=== PATIENT | male | born 1965 | race African-American/Black ===

== ENCOUNTER 2020-05-04 07:09 | Observation (INO) ==
[2020-05-04] MEDS ORDERED: FUROSEMIDE 40 MG/4 ML VIAL IV STA (07:46)
[2020-05-04] MEDS ORDERED: NITROGLYCERIN 2% OINT 1 INCH/GM PACK TOP STA (07:46)
[2020-05-04 08:02] LABS: Basophils # 0.1 10*3/uL (0.0-0.2); Basophils % 1.2 % (0.0-0.8); Eosinophils # 0.2 10*3/uL (0.0-0.87); Eosinophils % 2.5 % (0.00-10.9); Hematocrit 43.1 VOL% (42.0-52.0); Hemoglobin 14.3 GM/DL (14.0-18.0); Immature Granulocytes % 0.3 %; Immature Granulocytes Absolute 0.02 #; Lymphocytes % 29.6 % (21.2-54.2); Mean Corpuscular HGB Conc 33.2 GM/DL (32-36); Mean Corpuscular Volume 92.5 FL (87-102); Monocytes % 10.8 % (1.7-12.7); Neutrophils % 55.6 % (38.7-73.9); Platelet Count 200 T/CUMM (130-400); Red Blood Count 4.66 MC/CUMM (3.8-5.5); Red Cell Distribution Width 16.1 % (9.3-17.3); White Blood Count 6.8 T/CUMM (4-12)
[2020-05-04 08:40] LABS: Albumin 3.1 G/DL (3.4-5.0); Bilirubin,Total 0.9 MG/DL (0.2-1.0); Calcium 8.5 MG/DL (8.5-10.1); Osmolality,Calculated 281.3 MOS/KG (273-304); Potassium 4.1 MMOL/L (3.5-5.1); Total Protein 7.1 G/DL (6.4-8.3)
[2020-05-04] MEDS ORDERED: DEXTROSE 50% 25 GM/50 ML VIAL IV PRN (10:55)
[2020-05-04] MEDS ORDERED: GLUCAGON 1 MG VIAL IM PRN (10:55)
[2020-05-04] MEDS ORDERED: ACETAMINOPHEN 325 MG TABLET PO PRN (10:55)
[2020-05-04] MEDS ORDERED: ONDANSETRON 4 MG/2 ML VIAL IV PRN (10:55)
[2020-05-04 10:59] LABS: Ferritin 33.4 ng/ml (26-388)
[2020-05-04] MEDS: ENOXAPARIN 40 MG/0.4 ML SYRINGE SUBCUT SCH (11:14)
[2020-05-04] MEDS ORDERED: NICOTINE 21 MG/24 HR PATCH TRANSDERM PRN (11:24)
[2020-05-04] MEDS ORDERED: NITROGLYCERIN SL 0.4 MG TABLET SL PRN (11:28)
[2020-05-04 12:02] LABS: Risk Ratio 2.72; Thyroid Stimulating Hormone 2.67 uIU/ml (0.358-3.74); VLDL CHOLESTEROL 13.4 MG/DL
[2020-05-04 12:53] LABS: PT Patient Result 11.1 SECS (9.8-11.9); Partial Thromboplastin Time 28.6 SECS (23.9-33.8)
[2020-05-04] MEDS ORDERED: LORazepam 2 MG/1 ML VIAL IV PRN (13:13)
[2020-05-04] MEDS: INSULIN LISPRO 100 UNIT/ML SUBCUT SCH ×3 (13:51→20:26)
[2020-05-04] MEDS: THIAMINE 100 MG TABLET PO SCH (14:02)
[2020-05-04] MEDS: METOPROLOL TARTRATE 25 MG TABLET PO SCH (20:25)
[2020-05-04] MEDS ORDERED: FOLIC ACID 1 MG TABLET PO SCH (21:00)
[2020-05-05 06:16] LABS: Basophils # 0.1 10*3/uL (0.0-0.2); Basophils % 0.8 % (0.0-0.8); Eosinophils # 0.2 10*3/uL (0.0-0.87); Eosinophils % 2.7 % (0.00-10.9); Hemoglobin 13.2 GM/DL (14.0-18.0); Immature Granulocytes % 0.2 %; Immature Granulocytes Absolute 0.01 #; Lymphocytes # 2.3 10*3/uL (1.4-4.0); Lymphocytes % 38.9 % (21.2-54.2); Mean Corpuscular HGB Conc 33.8 GM/DL (32-36); Mean Corpuscular Volume 91.8 FL (87-102); Mean Platelet Volume 11.6 FL (9.6-12.0); Monocytes % 9.1 % (1.7-12.7); Neutrophils % 48.3 % (38.7-73.9); Platelet Count 179 T/CUMM (130-400); Red Blood Count 4.25 MC/CUMM (3.8-5.5); Red Cell Distribution Width 15.7 % (9.3-17.3); White Blood Count 5.9 T/CUMM (4-12)
[2020-05-05 06:36] LABS: Calcium 8.4 MG/DL (8.5-10.1); Osmolality,Calculated 282.4 MOS/KG (273-304); Potassium 3.4 MMOL/L (3.5-5.1)
[2020-05-05] MEDS: INSULIN LISPRO 100 UNIT/ML SUBCUT SCH ×2 (08:20→11:33)
[2020-05-05] MEDS ORDERED: FUROSEMIDE 40 MG/4 ML VIAL IV SCH (09:00)
[2020-05-05] MEDS ORDERED: LOSARTAN 25 MG TABLET PO SCH (09:00)
[2020-05-05] MEDS ORDERED: MULTIVITAMIN (CENTRUM) TABLET PO SCH (09:00)
[2020-05-05] MEDS ORDERED: PANTOPRAZOLE 40 MG TABLET PO SCH (09:00)
[2020-05-05] MEDS: THIAMINE 100 MG TABLET PO SCH (09:03)
[2020-05-05] MEDS: METOPROLOL TARTRATE 25 MG TABLET PO SCH (09:03)
[2020-05-05] MEDS ORDERED: cefTRIAXone 1,000 MG in SYRINGE 1 EACH IV ONE (10:30)
[2020-05-05] MEDS ORDERED: AZITHROMYCIN INJ 500 MG in SODIUM CHLORIDE 0.9% 250 ML IV ONE (10:30)
[2020-05-05] MEDS: ENOXAPARIN 40 MG/0.4 ML SYRINGE SUBCUT SCH (10:55)
[2020-05-05] MEDS ORDERED: POTASSIUM CHLORIDE 20 MEQ TABLET PO ONE (11:00)
[2020-05-05 12:08] VITALS: BP 124/68
== END 2020-05-05 13:09 | disposition home or self-care (01) ==
LOC: EDUNIT# → EDBD → N.ED 07:09 → N.EDINP 07:09 → N.TELES 10:12
PROVIDERS: ADMIT Internal Medicine; ATTEND Internal Medicine

== ENCOUNTER 2020-10-02 08:55 | Inpatient (IN) ==
[2020-10-02] MEDS ORDERED: GLUCAGON 1 MG VIAL IM PRN (11:18)
[2020-10-02] MEDS ORDERED: DEXTROSE 50% 25 GM/50 ML VIAL IV PRN (11:18)
[2020-10-02] MEDS ORDERED: CLORAZEPATE 3.75 MG TABLET PO PRN (11:28)
[2020-10-02] MEDS ORDERED: NICOTINE 21 MG/24 HR PATCH TRANSDERM PRN (11:29)
[2020-10-03 10:41] LABS: Basophils # 0.1 10*3/uL (0.0-0.2); Basophils % 0.9 % (0.0-0.8); Eosinophils # 0.2 10*3/uL (0.0-0.87); Eosinophils % 2.8 % (0.00-10.9); Hematocrit 45.3 VOL% (42.0-52.0); Hemoglobin 15.1 GM/DL (14.0-18.0); Immature Granulocytes % 0.4 %; Immature Granulocytes Absolute 0.02 #; Lymphocytes # 1.7 10*3/uL (1.4-4.0); Lymphocytes % 29.6 % (21.2-54.2); Mean Corpuscular HGB Conc 33.3 GM/DL (32-36); Mean Corpuscular Volume 92.8 FL (87-102); Mean Platelet Volume 10.5 FL (9.6-12.0); Monocytes % 8.5 % (1.7-12.7); Neutrophils % 57.8 % (38.7-73.9); Platelet Count 157 T/CUMM (130-400); Red Blood Count 4.88 MC/CUMM (3.8-5.5); Red Cell Distribution Width 16.4 % (9.3-17.3); White Blood Count 5.7 T/CUMM (4-12)
[2020-10-03] MEDS ORDERED: PNEUMOCOCCAL VACCINE (23 VALENT) 0.5 ML VIAL IM ONE (10:54)
[2020-10-03 11:00] LABS: Eosinophils 2 % (0-10); Lymphocytes 32 % (20-55); Platelet Estimate Adequate; Segmented Neutrophils 62 % (50-85); Total Cells Counted 100
[2020-10-03] MEDS: INSULIN REGULAR 100 UNIT/ML SUBCUT SCH ×4 (11:00→22:34)
[2020-10-03] MEDS: FOLIC ACID 1 MG TABLET PO SCH (11:01)
[2020-10-03] MEDS: MULTIVITAMIN (CENTRUM) TABLET PO SCH (11:01)
[2020-10-03] MEDS: THIAMINE 100 MG TABLET PO SCH (11:02)
[2020-10-03] MEDS ORDERED: NITROGLYCERIN SL 0.4 MG TABLET SL PRN (11:03)
[2020-10-03] MEDS: CHLORHEXIDINE 0.12% ORAL RINSE 60 ML BOTTLE SWISH/SPIT SCH ×2 (11:04→22:33)
[2020-10-03] MEDS ORDERED: MORPHINE 2 MG/1 ML SYRINGE IV PRN (11:04)
[2020-10-03 11:05] LABS: Albumin 3.1 G/DL (3.4-5.0); Bilirubin,Total 0.6 MG/DL (0.20-1.00); Osmolality,Calculated 279.7 MOS/KG (273-304); Potassium 3.7 MMOL/L (3.5-5.1); Total Protein 6.8 G/DL (6.4-8.2)
[2020-10-03] MEDS ORDERED: SODIUM CHLORIDE 0.9% 1,000 ML IV SCH (11:30)
[2020-10-03] MEDS ORDERED: POTASSIUM CHLORIDE 20 MEQ TABLET PO ONE (11:34)
[2020-10-03] MEDS: NICOTINE 21 MG/24 HR PATCH TRANSDERM SCH (11:53)
[2020-10-03] MEDS: CHLORHEXIDINE 4% SOLN 118 ML BOTTLE TOP SCH ×3 (14:00→22:25)
[2020-10-03 14:36] LABS: ABG Base Excess 1.1 MMOL/L (-2.5-2.5); ABG HCO3 25.4 MMOL/L (20-26); ABG Oxygen Saturation 97.5 % (95-100); ABG PCO2 37.1 MM HG (35-48); ABG PH 7.436 (7.35-7.45); ABG PO2 88.4 MM HG (80-95); ABG TCO2 20.8 MMOL/L (23-27)
[2020-10-03] MEDS: METOPROLOL TARTRATE 25 MG TABLET PO SCH (22:33)
[2020-10-04] MEDS ORDERED: PAPAVERINE 60 MG/2 ML VIAL ONE (04:23)
[2020-10-04] MEDS ORDERED: VANCOMYCIN 500 MG VIAL ONE (04:24)
[2020-10-04] MEDS ORDERED: VANCOMYCIN 1,000 MG VIAL ONE (04:24)
[2020-10-04] MEDS ORDERED: CEFUROXIME INJ 1,500 MG in SODIUM CHLORIDE 0.9% 100 ML IV ONE (05:00)
[2020-10-04] MEDS ORDERED: DIAZEPAM 5 MG TABLET PO ONE (05:28)
[2020-10-04] MEDS ORDERED: FAMOTIDINE 20 MG/2 ML VIAL IV ONE (05:28)
[2020-10-04] MEDS ORDERED: SUFentanil 250 MCG/5 ML AMP ONE ×2 (06:06)
[2020-10-04] MEDS ORDERED: MIDAZOLAM 10 MG/2 ML VIAL ONE ×4 (06:06→09:42)
[2020-10-04 07:48] LABS: ABG Base Excess -1.1 MMOL/L (-2.5-2.5); ABG HCO3 23.5 MMOL/L (20-26); ABG Oxygen Saturation 99.4 % (95-100); ABG PCO2 37.3 MM HG (35-48); ABG PH 7.402 (7.35-7.45); ABG TCO2 19.8 MMOL/L (23-27); Glucose Heart Surgery 186 MG/DL (74-106); Hematocrit Heart Surgery 45.5 PERCENT (42-52); Hemoglobin Heart Surgery 14.8 G/DL (14.0-18.0); Ionized Calcium Arterial 1.24 MMOL/L (1.21-1.46); PCO2 Patient Temp Arterial 37.3 MMHG; PH Patient Temp Arterial 7.402; Patient Temperature 37 CELCIUS; Potassium Heart/CVR 3.9 MMOL/L (3.5-5.1); Sodium Heart/CVR 141 MMOL/L (135-145)
[2020-10-04 09:09] LABS: Hematocrit Heart Surgery 33.5 PERCENT (42-52); Hemoglobin Heart Surgery 10.8 G/DL (14.0-18.0); PCO2 Patient Temp Venous 33.5 MM HG; PH Patient Temp Venous 7.452; PO2 Patient Temp Venous 42.3 MM HG; Potassium Heart/CVR 4.7 MMOL/L (3.5-5.1); VBG Base Excess -0.1 MEQ/L (0-4); VBG HCO3 24.1 MEQ/L (24-28); VBG Oxygen Saturation 84.4 %; VBG PCO2 36.9 MMHG (41-51); VBG PH 7.423; VBG PO2 48.6 MMHG (17-40); VBG Total CO2 21.7 MMOL/L
[2020-10-04] MEDS ORDERED: POTASSIUM CHLORIDE RIDER 20 MEQ/100 ML PREMIX IV ONE (09:39)
[2020-10-04] MEDS ORDERED: PHENYLEPHRINE DRIP 40 MG/250 ML PREMIX IV ONE (09:40)
[2020-10-04] MEDS ORDERED: ALBUMIN 5% 12.5 GM/250 ML VIAL IV ONE (09:40)
[2020-10-04 09:45] LABS: Hemoglobin Heart Surgery 12.6 G/DL (14.0-18.0); PCO2 Patient Temp Venous 27.5 MM HG; PH Patient Temp Venous 7.52; Potassium Heart/CVR 4.5 MMOL/L (3.5-5.1); VBG Base Excess -0.3 MEQ/L (0-4); VBG HCO3 22.5 MEQ/L (24-28); VBG Oxygen Saturation 87.8 %; VBG PCO2 31.4 MMHG (41-51); VBG PH 7.474; VBG PO2 51.8 MMHG (17-40); VBG Total CO2 23.5 MMOL/L
[2020-10-04 10:15] LABS: Hematocrit Heart Surgery 38.1 PERCENT (42-52); Hemoglobin Heart Surgery 12.4 G/DL (14.0-18.0); PCO2 Patient Temp Venous 33.9 MM HG; PH Patient Temp Venous 7.447; PO2 Patient Temp Venous 42.8 MM HG; Potassium Heart/CVR 4.8 MMOL/L (3.5-5.1); VBG Oxygen Saturation 79.5 %; VBG PCO2 33.9 MMHG (41-51); VBG PH 7.447; VBG PO2 42.8 MMHG (17-40); VBG Total CO2 20.7 MMOL/L
[2020-10-04] MEDS: FOLIC ACID 1 MG TABLET PO SCH (10:17)
[2020-10-04] MEDS: NICOTINE 21 MG/24 HR PATCH TRANSDERM SCH (10:17)
[2020-10-04] MEDS: INSULIN REGULAR 100 UNIT/ML SUBCUT SCH (10:17)
[2020-10-04] MEDS: METOPROLOL TARTRATE 25 MG TABLET PO SCH (10:17)
[2020-10-04] MEDS: MULTIVITAMIN (CENTRUM) TABLET PO SCH (10:17)
[2020-10-04] MEDS: CHLORHEXIDINE 0.12% ORAL RINSE 60 ML BOTTLE SWISH/SPIT SCH (10:18)
[2020-10-04] MEDS: THIAMINE 100 MG TABLET PO SCH (10:18)
[2020-10-04] MEDS ORDERED: ALBUMIN 25% 25 GM/100 ML VIAL IV ONE (10:37)
[2020-10-04] MEDS ORDERED: MAGNESIUM SULFATE 5 GM/10 ML VIAL IV ONE (10:38)
[2020-10-04] MEDS ORDERED: HEPARIN 10,000 UNIT/10 ML VIAL ONE (10:38)
[2020-10-04] MEDS ORDERED: LIDOCAINE 2% 5 ML VIAL ONE ×2 (10:38→10:52)
[2020-10-04] MEDS ORDERED: MANNITOL 100 GM/500 ML BAG IV ONE (10:38)
[2020-10-04] MEDS ORDERED: PROTAMINE SULFATE 250 MG/25 ML VIAL IV ONE (10:38)
[2020-10-04] MEDS ORDERED: methylPREDNISolone SOD SUC 1,000 MG/8 ML VIAL ONE (10:38)
[2020-10-04] MEDS ORDERED: FUROSEMIDE 20 MG/2 ML VIAL ONE (10:38)
[2020-10-04] MEDS ORDERED: DEXTROSE 5% KCL 20 MEQ 20 MEQ/1,000 ML BAG IV ONE (10:38)
[2020-10-04 10:39] LABS: ABG Base Excess -1.7 MMOL/L (-2.5-2.5); ABG Oxygen Saturation 99.9 % (95-100); ABG PCO2 35.1 MM HG (35-48); ABG PH 7.411 (7.35-7.45); ABG TCO2 19.6 MMOL/L (23-27); Glucose Heart Surgery 277 MG/DL (74-106); Hematocrit Heart Surgery 38.3 PERCENT (42-52); Hemoglobin Heart Surgery 12.5 G/DL (14.0-18.0); Ionized Calcium Arterial 1.25 MMOL/L (1.21-1.46); PCO2 Patient Temp Arterial 35.1 MMHG; PH Patient Temp Arterial 7.411; Patient Temperature 37 CELCIUS; Potassium Heart/CVR 4.1 MMOL/L (3.5-5.1); Sodium Heart/CVR 137 MMOL/L (135-145)
[2020-10-04] MEDS ORDERED: PROTAMINE SULFATE 50 MG/5 ML VIAL IV ONE (10:39)
[2020-10-04] MEDS ORDERED: SODIUM BICARBONATE 50 MEQ/50 ML VIAL IV ONE (10:39)
[2020-10-04] MEDS ORDERED: AMINOCAPROIC ACID 5,000 MG/20 ML VIAL ONE ×5 (10:48→10:53)
[2020-10-04] MEDS ORDERED: ETOMIDATE 40 MG/20 ML VIAL IV ONE (10:52)
[2020-10-04] MEDS ORDERED: CALCIUM CHLORIDE 1,000 MG/10 ML VIAL IV ONE (10:52)
[2020-10-04] MEDS ORDERED: VECURONIUM 10 MG VIAL IV ONE (10:52)
[2020-10-04] MEDS ORDERED: LACTATED RINGERS 1,000 ML IV ONE (10:53)
[2020-10-04] MEDS ORDERED: SODIUM CHLORIDE 0.9% 250 ML IV ONE (10:53)
[2020-10-04] MEDS ORDERED: SODIUM CHLORIDE 0.9% 100 ML IV ONE (10:53)
[2020-10-04] MEDS ORDERED: SODIUM CHLORIDE 0.9% 1,000 ML IV ONE (10:53)
[2020-10-04] MEDS ORDERED: NITROGLYCERIN DRIP 50 MG/250 ML BOTTLE IV ONE (10:54)
[2020-10-04] MEDS ORDERED: PHENYLEPHRINE DRIP 20 MG/250 ML PREMIX IV ONE (10:54)
[2020-10-04] MEDS ORDERED: SEVOFLURANE 1 UNIT/15 MINUTE INH ONE (10:55)
[2020-10-04] MEDS: LACTATED RINGERS 1,000 ML IV PRN ×3 (11:20→18:15)
[2020-10-04] MEDS ORDERED: SODIUM CHLORIDE 0.45% 1,000 ML IV SCH (11:29)
[2020-10-04] MEDS ORDERED: INSULIN REGULAR DRIP 100 ML IV SCH (11:29)
[2020-10-04] MEDS ORDERED: LACTATED RINGERS 250 ML IV PRN (11:29)
[2020-10-04] MEDS ORDERED: INSULIN REGULAR 100 UNIT/ML IV ONE (11:29)
[2020-10-04] MEDS ORDERED: PHENYLEPHRINE DRIP 40 MG/250 ML PREMIX IV PRN (11:29)
[2020-10-04] MEDS ORDERED: CHLORHEXIDINE 4% SOLN 118 ML BOTTLE TOP PRN (11:29)
[2020-10-04] MEDS ORDERED: VECURONIUM 10 MG VIAL IV PRN ×2 (11:29)
[2020-10-04] MEDS ORDERED: MAGNESIUM SULF RIDER 2 GM/50 ML PREMIX IV PRN (11:29)
[2020-10-04] MEDS ORDERED: DEXTROSE 50% 25 GM/50 ML VIAL IV PRN ×2 (11:29)
[2020-10-04] MEDS ORDERED: ACETAMINOPHEN 650 MG SUPP RECTAL PRN (11:29)
[2020-10-04] MEDS ORDERED: NITROPRUSSIDE 100 MG in DEXTROSE 5% 250 ML IV PRN (11:29)
[2020-10-04] MEDS ORDERED: MIDAZOLAM 2 MG/2 ML VIAL IV PRN (11:29)
[2020-10-04] MEDS ORDERED: INSULIN REGULAR 100 UNIT/ML IV PRN (11:29)
[2020-10-04] MEDS ORDERED: MIDAZOLAM 10 MG/2 ML VIAL IV PRN (11:29)
[2020-10-04] MEDS ORDERED: MAGNESIUM SULF RIDER 4 GM/100 ML PREMIX IV PRN (11:29)
[2020-10-04] MEDS ORDERED: CALCIUM CHLORIDE 1,000 MG/10 ML SYRINGE IV PRN (11:29)
[2020-10-04 11:32] LABS: ABG Base Excess -2.3 MMOL/L (-2.5-2.5); ABG HCO3 22.5 MMOL/L (20-26); ABG Oxygen Saturation 97.6 % (95-100); ABG PCO2 35.8 MM HG (35-48); ABG PH 7.395 (7.35-7.45); ABG PO2 94.3 MM HG (80-95); Glucose Heart Surgery 265 MG/DL (74-106); Hematocrit Heart Surgery 42.5 PERCENT (42-52); Hemoglobin Heart Surgery 13.9 G/DL (14.0-18.0); Potassium Heart/CVR 3.8 MMOL/L (3.5-5.1)
[2020-10-04 11:43] LABS: Basophils % 0.7 % (0.0-0.8); Eosinophils # 0.1 10*3/uL (0.0-0.87); Eosinophils % 1.8 % (0.00-10.9); Hematocrit 40.9 VOL% (42.0-52.0); Hemoglobin 13.6 GM/DL (14.0-18.0); Immature Granulocytes % 0.5 %; Immature Granulocytes Absolute 0.03 #; Lymphocytes # 1.1 10*3/uL (1.4-4.0); Lymphocytes % 17.9 % (21.2-54.2); Mean Corpuscular HGB Conc 33.3 GM/DL (32-36); Mean Corpuscular Volume 92.3 FL (87-102); Mean Platelet Volume 10.6 FL (9.6-12.0); Monocytes % 4.4 % (1.7-12.7); Neutrophils % 74.7 % (38.7-73.9); Platelet Count 128 T/CUMM (130-400); Red Blood Count 4.43 MC/CUMM (3.8-5.5); Red Cell Distribution Width 16.4 % (9.3-17.3); White Blood Count 6.1 T/CUMM (4-12)
[2020-10-04] MEDS: POTASSIUM CHLORIDE RIDER 20 MEQ/100 ML PREMIX IV PRN ×2 (11:45→19:00)
[2020-10-04 11:49] LABS: CKMB % 4.9 %; INR 1.1; Partial Thromboplastin Time 27.5 SECS (23.9-33.8)
[2020-10-04 11:50] LABS: High Sensitive Troponin I* 3973.1 ng/L (0-78)
[2020-10-04 12:06] LABS: Bilirubin,Total 1.2 MG/DL (0.20-1.00); Calcium 8.6 MG/DL (8.5-10.1); Osmolality,Calculated 290.1 MOS/KG (273-304); Potassium 3.8 MMOL/L (3.5-5.1); Total Protein 5.6 G/DL (6.4-8.2)
[2020-10-04] MEDS: POTASSIUM CHLORIDE RIDER 10 MEQ/100 ML PREMIX IV PRN ×2 (12:45→19:32)
[2020-10-04] MEDS: MORPHINE 10 MG/1 ML VIAL IV PRN (15:55)
[2020-10-04] MEDS ORDERED: NITROPRUSSIDE 50 MG/2 ML VIAL ONE (16:01)
[2020-10-04] MEDS: ALBUMIN 5% 12.5 GM/250 ML VIAL IV PRN ×3 (16:45→21:25)
[2020-10-04 18:12] LABS: ABG Base Excess -2.7 MMOL/L (-2.5-2.5); ABG HCO3 22.2 MMOL/L (20-26); ABG Oxygen Saturation 96.3 % (95-100); ABG PCO2 40.3 MM HG (35-48); ABG PH 7.358 (7.35-7.45); ABG PO2 86.5 MM HG (80-95); ABG TCO2 19.8 MMOL/L (23-27); Glucose Heart Surgery 186 MG/DL (74-106); Hematocrit Heart Surgery 41.5 PERCENT (42-52); Hemoglobin Heart Surgery 13.5 G/DL (14.0-18.0); Potassium Heart/CVR 3.5 MMOL/L (3.5-5.1)
[2020-10-04] MEDS: CEFUROXIME INJ 1,500 MG in SODIUM CHLORIDE 0.9% 100 ML IV SCH (18:26)
[2020-10-04] MEDS ORDERED: FUROSEMIDE 40 MG/4 ML VIAL IV PRN (18:49)
[2020-10-04 21:48] LABS: ABG HCO3 21.1 MMOL/L (20-26); ABG Oxygen Saturation 96.1 % (95-100); ABG PCO2 44.8 MM HG (35-48); ABG PH 7.308 (7.35-7.45); ABG PO2 89.3 MM HG (80-95); ABG TCO2 19.9 MMOL/L (23-27); Glucose Heart Surgery 165 MG/DL (74-106); Hematocrit Heart Surgery 39.4 PERCENT (42-52); Hemoglobin Heart Surgery 12.8 G/DL (14.0-18.0); Potassium Heart/CVR 3.8 MMOL/L (3.5-5.1)
[2020-10-05 00:05] LABS: ABG HCO3 21.8 MMOL/L (20-26); ABG Oxygen Saturation 95.4 % (95-100); ABG PCO2 41.8 MM HG (35-48); ABG PH 7.341 (7.35-7.45); ABG PO2 79.3 MM HG (80-95); ABG TCO2 20.2 MMOL/L (23-27); Glucose Heart Surgery 153 MG/DL (74-106); Hematocrit Heart Surgery 37.3 PERCENT (42-52); Hemoglobin Heart Surgery 12.1 G/DL (14.0-18.0); Potassium Heart/CVR 3.8 MMOL/L (3.5-5.1)
[2020-10-05] MEDS: ALBUMIN 5% 12.5 GM/250 ML VIAL IV PRN (00:08)
[2020-10-05] MEDS: POTASSIUM CHLORIDE RIDER 20 MEQ/100 ML PREMIX IV PRN (00:16)
[2020-10-05] MEDS: ONDANSETRON 4 MG/2 ML VIAL IV PRN ×2 (00:22→02:38)
[2020-10-05] MEDS: POTASSIUM CHLORIDE RIDER 10 MEQ/100 ML PREMIX IV PRN (00:46)
[2020-10-05 02:11] LABS: ABG Base Excess -2.3 MMOL/L (-2.5-2.5); ABG HCO3 22.4 MMOL/L (20-26); ABG Oxygen Saturation 93.4 % (95-100); ABG PCO2 41.7 MM HG (35-48); ABG PH 7.354 (7.35-7.45); ABG PO2 70.1 MM HG (80-95); ABG TCO2 20.7 MMOL/L (23-27); Glucose Heart Surgery 136 MG/DL (74-106); Hematocrit Heart Surgery 36.3 PERCENT (42-52); Hemoglobin Heart Surgery 11.8 G/DL (14.0-18.0); Potassium Heart/CVR 4.2 MMOL/L (3.5-5.1)
[2020-10-05 03:13] LABS: ABG Base Excess -2.5 MMOL/L (-2.5-2.5); ABG HCO3 22.2 MMOL/L (20-26); ABG Oxygen Saturation 95.5 % (95-100); ABG PCO2 40.9 MM HG (35-48); ABG PH 7.355 (7.35-7.45); ABG PO2 78.4 MM HG (80-95); ABG TCO2 20.4 MMOL/L (23-27); Glucose Heart Surgery 132 MG/DL (74-106); Hematocrit Heart Surgery 36.3 PERCENT (42-52); Hemoglobin Heart Surgery 11.8 G/DL (14.0-18.0); Potassium Heart/CVR 4.1 MMOL/L (3.5-5.1)
[2020-10-05 04:29] LABS: ABG Base Excess -2.4 MMOL/L (-2.5-2.5); ABG HCO3 22.3 MMOL/L (20-26); ABG Oxygen Saturation 94.9 % (95-100); ABG PCO2 39.9 MM HG (35-48); ABG PH 7.364 (7.35-7.45); ABG PO2 75.4 MM HG (80-95); ABG TCO2 20.3 MMOL/L (23-27); Glucose Heart Surgery 125 MG/DL (74-106); Hematocrit Heart Surgery 36.1 PERCENT (42-52); Hemoglobin Heart Surgery 11.7 G/DL (14.0-18.0); Potassium Heart/CVR 3.9 MMOL/L (3.5-5.1)
[2020-10-05 04:31] LABS: Basophils % 0.1 % (0.0-0.8); Hematocrit 35.1 VOL% (42.0-52.0); Hemoglobin 11.8 GM/DL (14.0-18.0); Immature Granulocytes % 0.4 %; Immature Granulocytes Absolute 0.05 #; Lymphocytes # 0.6 10*3/uL (1.4-4.0); Lymphocytes % 4.8 % (21.2-54.2); Mean Corpuscular HGB Conc 33.6 GM/DL (32-36); Mean Corpuscular Volume 94.1 FL (87-102); Mean Platelet Volume 10.8 FL (9.6-12.0); Monocytes % 6.7 % (1.7-12.7); Platelet Count 138 T/CUMM (130-400); Red Blood Count 3.73 MC/CUMM (3.8-5.5); Red Cell Distribution Width 16.2 % (9.3-17.3)
[2020-10-05 04:32] LABS: White Blood Count 13.4 T/CUMM (4-12)
[2020-10-05 04:52] LABS: Band Neutrophils 1 % (0-10); Hypochromasia 1+; Lymphocytes 8 % (20-55); Segmented Neutrophils 89 % (50-85); Total Cells Counted 100
[2020-10-05 04:56] LABS: Microcytosis 1+; Platelet Estimate Adequate
[2020-10-05 04:57] LABS: Albumin 3.6 G/DL (3.4-5.0); Bilirubin,Direct 0.21 MG/DL (0.0-0.20); Bilirubin,Total 1.3 MG/DL (0.20-1.00); Calcium 8.5 MG/DL (8.5-10.1); Osmolality,Calculated 286.8 MOS/KG (273-304); Potassium 3.9 MMOL/L (3.5-5.1); Total Protein 6.4 G/DL (6.4-8.2)
[2020-10-05 05:16] LABS: High Sensitive Troponin I* 6079.2 ng/L (0-78)
[2020-10-05] MEDS: CHLORHEXIDINE 0.12% ORAL RINSE 60 ML BOTTLE SWISH/SPIT SCH ×3 (05:57→20:30)
[2020-10-05 06:19] LABS: ABG Base Excess -1.7 MMOL/L (-2.5-2.5); ABG HCO3 22.9 MMOL/L (20-26); ABG Oxygen Saturation 92.6 % (95-100); ABG PCO2 40.2 MM HG (35-48); ABG PH 7.373 (7.35-7.45); ABG PO2 66.4 MM HG (80-95); ABG TCO2 20.9 MMOL/L (23-27); Glucose Heart Surgery 130 MG/DL (74-106); Hematocrit Heart Surgery 35.9 PERCENT (42-52); Hemoglobin Heart Surgery 11.6 G/DL (14.0-18.0)
[2020-10-05] MEDS: MORPHINE 10 MG/1 ML VIAL IV PRN (06:23)
[2020-10-05] MEDS: CEFUROXIME INJ 1,500 MG in SODIUM CHLORIDE 0.9% 100 ML IV SCH ×2 (06:37→18:03)
[2020-10-05] MEDS ORDERED: oxyCODONE/ACETAMINOPHEN 5-325 MG TABLET PO PRN (07:30)
[2020-10-05] MEDS ORDERED: ALBUTEROL/IPRATROPIUM 3 ML NEB RESP TX PRN ×2 (07:39→13:00)
[2020-10-05] MEDS ORDERED: METOPROLOL TARTRATE 25 MG TABLET PO SCH ×2 (07:44→09:00)
[2020-10-05] MEDS: KETOROLAC 30 MG/1 ML VIAL IV SCH ×3 (07:55→20:31)
[2020-10-05] MEDS: FUROSEMIDE 20 MG TABLET PO SCH (08:01)
[2020-10-05] MEDS: amLODIPine 5 MG TABLET PO SCH (08:01)
[2020-10-05] MEDS: NICOTINE 21 MG/24 HR PATCH TRANSDERM SCH (08:01)
[2020-10-05] MEDS: ASPIRIN EC 325 MG TABLET PO SCH (08:01)
[2020-10-05] MEDS: LOSARTAN 25 MG TABLET PO SCH (08:02)
[2020-10-05] MEDS ORDERED: hydrALAZINE 20 MG/1 ML VIAL IV ONE (08:51)
[2020-10-05] MEDS ORDERED: SPIRONOLACTONE 25 MG TABLET PO SCH (09:00)
[2020-10-05] MEDS ORDERED: hydroCHLOROthiazide 12.5 MG CAPSULE PO SCH (09:00)
[2020-10-05] MEDS ORDERED: METOPROLOL TARTRATE 25 MG TABLET PO ONE (09:29)
[2020-10-05] MEDS ORDERED: CLORAZEPATE 7.5 MG TABLET PO PRN (09:30)
[2020-10-05] MEDS ORDERED: MAGNESIUM HYDROXIDE SUSP 30 ML UDCUP PO PRN (10:06)
[2020-10-05] MEDS ORDERED: ONDANSETRON 4 MG/2 ML VIAL IV PRN (10:06)
[2020-10-05] MEDS ORDERED: MAGNESIUM SULF RIDER 4 GM/100 ML PREMIX IV PRN (10:06)
[2020-10-05] MEDS ORDERED: SODIUM CHLOR 0.45% KCL 20 MEQ 20 MEQ/1,000 ML BAG IV SCH (10:06)
[2020-10-05] MEDS ORDERED: DEXTROSE 50% 25 GM/50 ML VIAL IV PRN ×2 (10:06)
[2020-10-05] MEDS ORDERED: ALUMINUM/MAGNES/SIMETH MAX STR 30 ML UDCUP PO PRN (10:06)
[2020-10-05] MEDS ORDERED: ACETAMINOPHEN 325 MG TABLET PO PRN (10:06)
[2020-10-05] MEDS ORDERED: POTASSIUM CHLORIDE 20 MEQ TABLET PO PRN (10:06)
[2020-10-05] MEDS ORDERED: ZALEPLON 5 MG CAPSULE PO PRN (10:06)
[2020-10-05] MEDS ORDERED: MAGNESIUM SULF RIDER 2 GM/50 ML PREMIX IV PRN (10:06)
[2020-10-05] MEDS ORDERED: GLUCAGON 1 MG VIAL IM PRN ×2 (10:06)
[2020-10-05 13:20] LABS: CKMB % 2.1 %; High Sensitive Troponin I* 4140.2 ng/L (0-78)
[2020-10-05] MEDS: ATORVASTATIN 40 MG TABLET PO SCH (20:30)
[2020-10-05] MEDS: METOPROLOL TARTRATE 50 MG TABLET PO SCH (20:30)
[2020-10-06] MEDS: KETOROLAC 30 MG/1 ML VIAL IV SCH ×4 (00:36→20:29)
[2020-10-06 05:21] LABS: Basophils % 0.2 % (0.0-0.8); Eosinophils % 0.1 % (0.00-10.9); Hematocrit 41.3 VOL% (42.0-52.0); Hemoglobin 13.1 GM/DL (14.0-18.0); Immature Granulocytes % 1.4 %; Immature Granulocytes Absolute 0.25 #; Lymphocytes # 1.3 10*3/uL (1.4-4.0); Lymphocytes % 7.1 % (21.2-54.2); Mean Corpuscular HGB Conc 31.7 GM/DL (32-36); Mean Corpuscular Volume 99.3 FL (87-102); Mean Platelet Volume 13.1 FL (9.6-12.0); Monocytes % 9.1 % (1.7-12.7); NRBC # 0.02 10*3/uL; Neutrophils % 82.1 % (38.7-73.9); Platelet Count 108 T/CUMM (130-400); Red Blood Count 4.16 MC/CUMM (3.8-5.5); Red Cell Distribution Width 17.2 % (9.3-17.3); White Blood Count 17.9 T/CUMM (4-12)
[2020-10-06 05:57] LABS: Alanine Aminotransferase 65 U/L (16-61); Albumin 3.1 G/DL (3.4-5.0); Alkaline Phosphatase 111 U/L (45-117); Aspartate Amino Transferase 63 U/L (0-37); Bilirubin,Indirect 0.8 MG/DL (0.0-1.0); Total Protein 6.6 G/DL (6.4-8.2)
[2020-10-06 05:58] LABS: Albumin 3.4 G/DL (3.4-5.0); Bilirubin,Direct 0.23 MG/DL (0.0-0.20); Bilirubin,Total 1.5 MG/DL (0.20-1.00); Osmolality,Calculated 287.4 MOS/KG (273-304); Potassium 4.3 MMOL/L (3.5-5.1); Total Protein 6.6 G/DL (6.4-8.2)
[2020-10-06] MEDS ORDERED: FUROSEMIDE 40 MG/4 ML VIAL IV ONE (06:00)
[2020-10-06] MEDS: MULTIVITAMIN (CENTRUM) TABLET PO SCH (09:14)
[2020-10-06] MEDS: THIAMINE 100 MG TABLET PO SCH (09:14)
[2020-10-06] MEDS: DOCUSATE SODIUM 100 MG CAPSULE PO SCH (09:14)
[2020-10-06] MEDS: LOSARTAN 25 MG TABLET PO SCH (09:14)
[2020-10-06] MEDS: FERROUS SULFATE 325 MG TABLET PO SCH (09:14)
[2020-10-06] MEDS: METOPROLOL TARTRATE 50 MG TABLET PO SCH ×2 (09:14→20:29)
[2020-10-06] MEDS: ASPIRIN EC 325 MG TABLET PO SCH (09:14)
[2020-10-06] MEDS: amLODIPine 5 MG TABLET PO SCH (09:14)
[2020-10-06] MEDS: FOLIC ACID 1 MG TABLET PO SCH (09:14)
[2020-10-06] MEDS: NICOTINE 21 MG/24 HR PATCH TRANSDERM SCH (09:15)
[2020-10-06] MEDS: FUROSEMIDE 20 MG TABLET PO SCH (09:15)
[2020-10-06] MEDS: PANTOPRAZOLE 40 MG TABLET PO SCH (09:15)
[2020-10-06] MEDS: CHLORHEXIDINE 0.12% ORAL RINSE 60 ML BOTTLE SWISH/SPIT SCH ×2 (09:16→20:29)
[2020-10-06] MEDS: ATORVASTATIN 40 MG TABLET PO SCH (20:29)
[2020-10-07] MEDS: KETOROLAC 30 MG/1 ML VIAL IV SCH ×4 (00:33→20:24)
[2020-10-07 05:10] LABS: Basophils % 0.2 % (0.0-0.8); Eosinophils % 0.3 % (0.00-10.9); Hematocrit 35.8 VOL% (42.0-52.0); Hemoglobin 11.8 GM/DL (14.0-18.0); Immature Granulocytes % 0.5 %; Immature Granulocytes Absolute 0.06 #; Lymphocytes # 2.5 10*3/uL (1.4-4.0); Lymphocytes % 19.9 % (21.2-54.2); Mean Corpuscular Volume 95.5 FL (87-102); Mean Platelet Volume 11.5 FL (9.6-12.0); Monocytes % 8.7 % (1.7-12.7); Neutrophils % 70.4 % (38.7-73.9); Platelet Count 143 T/CUMM (130-400); Red Blood Count 3.75 MC/CUMM (3.8-5.5); Red Cell Distribution Width 16.4 % (9.3-17.3); White Blood Count 12.8 T/CUMM (4-12)
[2020-10-07 05:28] LABS: Alanine Aminotransferase 178 U/L (16-61); Albumin 3.2 G/DL (3.4-5.0); Alkaline Phosphatase 88 U/L (45-117); Aspartate Amino Transferase 130 U/L (0-37); Bilirubin,Indirect 0.8 MG/DL (0.0-1.0); Total Protein 6.5 G/DL (6.4-8.2)
[2020-10-07 05:30] LABS: Albumin 3.2 G/DL (3.4-5.0); Bilirubin,Direct 0.32 MG/DL (0.0-0.20); Bilirubin,Total 1.8 MG/DL (0.20-1.00); Calcium 8.6 MG/DL (8.5-10.1); Potassium 3.6 MMOL/L (3.5-5.1); Total Protein 6.5 G/DL (6.4-8.2)
[2020-10-07] MEDS ORDERED: SPIRONOLACTONE 25 MG TABLET PO SCH (09:00)
[2020-10-07] MEDS: MULTIVITAMIN (CENTRUM) TABLET PO SCH (09:27)
[2020-10-07] MEDS: PANTOPRAZOLE 40 MG TABLET PO SCH (09:27)
[2020-10-07] MEDS: LOSARTAN 25 MG TABLET PO SCH (09:27)
[2020-10-07] MEDS: DOCUSATE SODIUM 100 MG CAPSULE PO SCH (09:27)
[2020-10-07] MEDS: FERROUS SULFATE 325 MG TABLET PO SCH (09:27)
[2020-10-07] MEDS: FOLIC ACID 1 MG TABLET PO SCH (09:27)
[2020-10-07] MEDS: ASPIRIN EC 325 MG TABLET PO SCH (09:27)
[2020-10-07] MEDS: FUROSEMIDE 20 MG TABLET PO SCH (09:27)
[2020-10-07] MEDS: METOPROLOL TARTRATE 50 MG TABLET PO SCH ×2 (09:27→20:24)
[2020-10-07] MEDS: NICOTINE 21 MG/24 HR PATCH TRANSDERM SCH (09:28)
[2020-10-07] MEDS: CHLORHEXIDINE 0.12% ORAL RINSE 60 ML BOTTLE SWISH/SPIT SCH ×2 (09:29→20:24)
[2020-10-07] MEDS: THIAMINE 100 MG TABLET PO SCH (09:29)
[2020-10-07] MEDS: amLODIPine 5 MG TABLET PO SCH (09:29)
[2020-10-07] MEDS: metFORMIN 500 MG TABLET PO SCH (16:33)
[2020-10-08] MEDS: KETOROLAC 30 MG/1 ML VIAL IV SCH ×4 (00:35→20:51)
[2020-10-08 06:01] LABS: Basophils % 0.5 % (0.0-0.8); Eosinophils # 0.1 10*3/uL (0.0-0.87); Eosinophils % 1.5 % (0.00-10.9); Hematocrit 35.9 VOL% (42.0-52.0); Immature Granulocytes % 0.6 %; Immature Granulocytes Absolute 0.05 #; Lymphocytes # 2.6 10*3/uL (1.4-4.0); Lymphocytes % 30.2 % (21.2-54.2); Mean Corpuscular HGB Conc 33.4 GM/DL (32-36); Mean Corpuscular Volume 94.2 FL (87-102); Mean Platelet Volume 11.9 FL (9.6-12.0); Monocytes % 10.4 % (1.7-12.7); Neutrophils % 56.8 % (38.7-73.9); Platelet Count 165 T/CUMM (130-400); Red Blood Count 3.81 MC/CUMM (3.8-5.5); Red Cell Distribution Width 15.9 % (9.3-17.3); White Blood Count 8.7 T/CUMM (4-12)
[2020-10-08 06:43] LABS: Bilirubin,Total 1.4 MG/DL (0.20-1.00); Calcium 8.7 MG/DL (8.5-10.1); Osmolality,Calculated 282.5 MOS/KG (273-304); Potassium 3.4 MMOL/L (3.5-5.1); Total Protein 6.3 G/DL (6.4-8.2)
[2020-10-08] MEDS ORDERED: POTASSIUM CHLORIDE 20 MEQ TABLET PO ONE (09:00)
[2020-10-08] MEDS: FUROSEMIDE 20 MG TABLET PO SCH (09:01)
[2020-10-08] MEDS: THIAMINE 100 MG TABLET PO SCH (09:01)
[2020-10-08] MEDS: DOCUSATE SODIUM 100 MG CAPSULE PO SCH (09:01)
[2020-10-08] MEDS: ASPIRIN EC 325 MG TABLET PO SCH (09:01)
[2020-10-08] MEDS: FOLIC ACID 1 MG TABLET PO SCH (09:01)
[2020-10-08] MEDS: MULTIVITAMIN (CENTRUM) TABLET PO SCH (09:01)
[2020-10-08] MEDS: amLODIPine 10 MG TABLET PO SCH (09:02)
[2020-10-08] MEDS: PANTOPRAZOLE 40 MG TABLET PO SCH (09:02)
[2020-10-08] MEDS: glipiZIDE 5 MG TABLET PO SCH (09:02)
[2020-10-08] MEDS: metFORMIN 500 MG TABLET PO SCH ×2 (09:02→17:20)
[2020-10-08] MEDS: METOPROLOL TARTRATE 50 MG TABLET PO SCH ×2 (09:02→20:51)
[2020-10-08] MEDS: LOSARTAN 25 MG TABLET PO SCH (09:02)
[2020-10-08] MEDS: FERROUS SULFATE 325 MG TABLET PO SCH (09:02)
[2020-10-08] MEDS: NICOTINE 21 MG/24 HR PATCH TRANSDERM SCH (09:03)
[2020-10-08] MEDS: CHLORHEXIDINE 0.12% ORAL RINSE 60 ML BOTTLE SWISH/SPIT SCH ×2 (10:16→20:51)
[2020-10-09] MEDS: KETOROLAC 30 MG/1 ML VIAL IV SCH ×2 (01:34→08:57)
[2020-10-09 03:59] LABS: Basophils % 0.5 % (0.0-0.8); Eosinophils # 0.2 10*3/uL (0.0-0.87); Eosinophils % 2.1 % (0.00-10.9); Hematocrit 35.9 VOL% (42.0-52.0); Hemoglobin 12.1 GM/DL (14.0-18.0); Immature Granulocytes % 0.5 %; Immature Granulocytes Absolute 0.04 #; Lymphocytes # 2.8 10*3/uL (1.4-4.0); Lymphocytes % 37.4 % (21.2-54.2); Mean Corpuscular HGB Conc 33.7 GM/DL (32-36); Mean Corpuscular Volume 92.5 FL (87-102); Monocytes % 9.9 % (1.7-12.7); Neutrophils % 49.6 % (38.7-73.9); Platelet Count 195 T/CUMM (130-400); Red Blood Count 3.88 MC/CUMM (3.8-5.5); Red Cell Distribution Width 15.4 % (9.3-17.3); White Blood Count 7.5 T/CUMM (4-12)
[2020-10-09 04:13] LABS: Alanine Aminotransferase 134 U/L (16-61); Albumin 2.9 G/DL (3.4-5.0); Alkaline Phosphatase 84 U/L (45-117); Aspartate Amino Transferase 32 U/L (0-37); Bilirubin,Indirect 0.5 MG/DL (0.0-1.0); Blood Urea Nitrogen 17 MG/DL (7-18); Calcium 8.5 MG/DL (8.5-10.1); Carbon Dioxide 28 MMOL/L (21-32); Estimated Glom Filtration Rate 138 ML/MIN; Glucose 183 MG/DL (74-106); Osmolality,Calculated 285.4 MOS/KG (273-304); Potassium 3.6 MMOL/L (3.5-5.1); Sodium 140 MMOL/L (136-145); Total Protein 6.1 G/DL (6.4-8.2)
[2020-10-09] MEDS ORDERED: MAGNESIUM SULF RIDER 2 GM/50 ML PREMIX IV ONE (07:18)
[2020-10-09] MEDS: NICOTINE 21 MG/24 HR PATCH TRANSDERM SCH (08:55)
[2020-10-09] MEDS: CHLORHEXIDINE 0.12% ORAL RINSE 60 ML BOTTLE SWISH/SPIT SCH (08:55)
[2020-10-09] MEDS: ASPIRIN EC 325 MG TABLET PO SCH (08:56)
[2020-10-09] MEDS: MULTIVITAMIN (CENTRUM) TABLET PO SCH (08:56)
[2020-10-09] MEDS: THIAMINE 100 MG TABLET PO SCH (08:56)
[2020-10-09] MEDS: FOLIC ACID 1 MG TABLET PO SCH (08:56)
[2020-10-09] MEDS: PANTOPRAZOLE 40 MG TABLET PO SCH (08:56)
[2020-10-09] MEDS: glipiZIDE 5 MG TABLET PO SCH (08:56)
[2020-10-09] MEDS: metFORMIN 500 MG TABLET PO SCH (08:57)
[2020-10-09] MEDS: METOPROLOL TARTRATE 50 MG TABLET PO SCH (08:57)
[2020-10-09] MEDS: FUROSEMIDE 20 MG TABLET PO SCH (08:57)
[2020-10-09] MEDS: FERROUS SULFATE 325 MG TABLET PO SCH (08:57)
[2020-10-09] MEDS: DOCUSATE SODIUM 100 MG CAPSULE PO SCH (08:57)
[2020-10-09] MEDS: LOSARTAN 25 MG TABLET PO SCH (08:57)
[2020-10-09] MEDS: amLODIPine 10 MG TABLET PO SCH (08:57)
[2020-10-09] MEDS ORDERED: POTASSIUM CHLORIDE 10 MEQ TABLET PO SCH (09:00)
[2020-10-09 12:19] VITALS: BP 124/78
== END 2020-10-09 14:05 | disposition home health service (06) | DRG 236 ==
LOC: N.TELEN 10-03 07:20 → N.CVR 10-04 11:09 → N.TELES 10-05 12:12